=== PATIENT | female | born 1955 | race Caucasian/White ===

== ENCOUNTER 2020-11-02 15:53 | Emergency (ER) | payer MEDICAID ==
[~2020-11-02] VITALS: Ht 152.4 cm; Wt 68.2 kg
[~2020-11-02 15:53] MED LIST: ALB0.5UD IH; ALBU18HF2 INH; ASPI81TA52 PO; AZIT250T PO; CLON-527 PO; CLOP75TA34 PO; COR3.125T PO; IBUP-1985 PO; ONDA4TAB9 PO; PANT20TA2 PO; POLY17PO10 PO; TEG100T PO; TOP100T PO; VENL150C2 PO
--- NOTE | 2020-11-02 17:19 | NUR ---
Discussed pt's pain w/ pa miller;new order for tylenol received.
[2020-11-02] MEDS ORDERED: acetaminophen 325mg tablet PO ONE ×2 (17:20→17:25)
[2020-11-02 17:39] LABS: CLARITY,URINE SLIGHTLY CLOUDY (Clear); COLOR,URINE YELLOW (Yellow); GLUCOSE, URINE NEGATIVE (Neg); KETONES,URINE NEGATIVE (Neg); LEUKOCYTE ESTERASE ,URINE SMALL (Neg); NITRITES, URINE NEGATIVE (Neg); OCCULT BLOOD,URINE NEGATIVE (Neg); PROTEIN,URINE NEGATIVE (Neg); UROBILINOGEN,URINE 0.2 E.U/dL (0.2-1.0)
[2020-11-02 17:40] LABS: BASOPHILS # (AUTO) 0.1 X10'3 (0-0.2); BASOPHILS % (AUTO) 1.2 % (0-1); EOSINOPHILS # (AUTO) 0.2 X10'3 (0-0.9); EOSINOPHILS % (AUTO) 3.3 % (0-6); HEMATOCRIT 31.1 % (35.0-45.0); HEMOGLOBIN 10.5 g/dl (12.0-16.0); LYMPHOCYTES # (AUTO) 2.3 X10'3 (1.1-4.8); LYMPHOCYTES % (AUTO) 37.9 % (21-51); MEAN CORPUSCULAR HEMOGLOBIN 28.8 PG (27.0-31.0); MEAN CORPUSCULAR HGB CONC 33.6 g/dL (33.0-36.5); MEAN CORPUSCULAR VOLUME 85.5 FL (78-98); MEAN PLATELET VOLUME 6.3 FL (7.4-10.4); MONOCYTES # (AUTO) 0.4 X10'3 (0-0.9); MONOCYTES % (AUTO) 5.9 % (2-12); NEUTROPHILS # (AUTO) 3.1 X10'3 (1.8-7.7); NEUTROPHILS % (AUTO) 51.7 % (42-75); PLATELET COUNT 352 X10'3 (140-440); RED BLOOD COUNT 3.63 X10'6 (4.20-5.60); RED CELL DISTRIBUTION WIDTH 14.6 % (11.5-14.5)
[2020-11-02 17:49] LABS: ANION GAP 10 (8-16); BILIRUBIN,TOTAL 0.2 MG/DL (0.1-1.0); BLOOD UREA NITROGEN 9 MG/DL (7-18); BUN/CREATININE RATIO 10.5 (6.6-38.0); CALCIUM 8.8 MG/DL (8.5-10.1); CHLORIDE 92 MMOL/L (99-107); CREATININE 0.86 MG/DL (0.40-0.90); GLUCOSE 102 MG/DL (70-104); SODIUM 122 MMOL/L (135-145); TOTAL CARBON DIOXIDE 19.9 MMOL/L (24-32); eGFR 66 ML/MIN
[2020-11-02 17:50] LABS: ALANINE AMINOTRANSFERASE 14 U/L (12-78); ALBUMIN 3.5 G/DL (3.4-5.0); ALBUMIN/GLOBULIN RATIO 1.1 (1.1-1.5); ALKALINE PHOSPHATASE 95 IU/L (46-116); ASPARTATE AMINO TRANSFERASE 11 U/L (10-37); TOTAL PROTEIN 6.6 G/DL (6.4-8.2)
[2020-11-02 17:52] LABS: UA COLLECTION TYPE CLN CATCH MIDSTREAM
[2020-11-02 17:55] LABS: BACTERIA,URINE 1+ /HPF (Neg); SQUAMOUS EPITHELIAL CELL,UR MODERATE /LPF (FEW)
[2020-11-02 17:56] LABS: RBC,URINE NONE SEEN /HPF (0-2)
[2020-11-02 18:02] LABS: WBC CLUMPS,URINE FEW /HPF (NEGATIVE)
[2020-11-02] MEDS ORDERED: normal saline 1000ML IV soln IVB ONE (18:35)
[2020-11-02] MEDS ORDERED: ketorolac tromethamine 15mg/ml inj. IV ONE (18:35)
[2020-11-02 19:57] LABS: ALBUMIN 3.3 G/DL (3.4-5.0); ANION GAP 11 (8-16); BLOOD UREA NITROGEN 9 MG/DL (7-18); BUN/CREATININE RATIO 9.6 (6.6-38.0); CALCIUM 8.5 MG/DL (8.5-10.1); CHLORIDE 92 MMOL/L (99-107); CREATININE 0.94 MG/DL (0.40-0.90); GLUCOSE 91 MG/DL (70-104); POTASSIUM 3.7 MMOL/L (3.5-5.1); SODIUM 124 MMOL/L (135-145); TOTAL CARBON DIOXIDE 20.6 MMOL/L (24-32); eGFR 60 ML/MIN
[2020-11-02] MEDS ORDERED: NITR100C PO (20:38)
[2020-11-02 21:00] VITALS: BP 107/50
== END 2020-11-02 21:02 | disposition home or self-care (01) ==
LOC: ER 15:54
DX: N39.0 Urinary tract infection, site not specified (principal); Z20.822 Contact with and (suspected) exposure to COVID-19; N20.0 Calculus of kidney; R30.0 Dysuria; M54.5 Low back pain; R10.32 Left lower quadrant pain; I11.0 Hypertensive heart disease with heart failure; I50.9 Heart failure, unspecified; J45.909 Unspecified asthma, uncomplicated; J44.9 Chronic obstructive pulmonary disease, unspecified; K21.9 Gastro-esophageal reflux disease without esophagitis; G89.29 Other chronic pain; F41.9 Anxiety disorder, unspecified; F31.9 Bipolar disorder, unspecified; Z86.69 Personal history of other diseases of the nervous system and sense organs; Z90.710 Acquired absence of both cervix and uterus; Z98.890 Other specified postprocedural states; Z56.0 Unemployment, unspecified; Z88.1 Allergy status to other antibiotic agents; Z88.0 Allergy status to penicillin; Z88.2 Allergy status to sulfonamides; Z79.82 Long term (current) use of aspirin; Z79.2 Long term (current) use of antibiotics; Z79.899 Other long term (current) drug therapy
CPT/HCPCS: 36415; 74176; 80048; 80053; 81001; 85025; 87088; 87186; 87635; 96361; 96374; 99285; J1885; J7030; 87077